=== PATIENT | male | born 1955 | race Caucasian/White ===

== ENCOUNTER → 2018-09-04 10:37 | Outpatient (CLI) | payer MEDICARE, OTHER, SELFPAY ==
--- NOTE | 2018-09-04 | DI.US.S_ITS ---
PROCEDURE: US ABD AORTA ANEURYSM SCREEN INDICATIONS: SCREENING TECHNIQUE: Real time scanning was performed of the aorta and iliac arteries, with image documentation. COMPARISON: None. FINDINGS: Aorta: Proximal aortic diameter measures 2.1 cm. Mid-aorta measures 1.6 cm. Distal aortic diameter is 1.7 cm. Iliac arteries: Right common iliac artery measures 1.3 cm. Left common iliac artery measures 1.2 cm. IMPRESSION: No abdominal aortic or proximal common iliac artery aneurysm. Dictated by: Aneesh Harrison [facility] Interpreted: Fatemeh Venegas MD on 09/04/2018 at 11:23 Approved by: Fatemeh Venegas MD, PhD on 09/04/2018 at 12:26
--- NOTE | 2018-09-04 | DI.RAD.S_ITS ---
PROCEDURE: XR CHEST 2V INDICATIONS: LEFT UPPER CHEST PAIN TECHNIQUE: 2 views of the chest were acquired. COMPARISON: [facility], , CHEST 2 VIEW, 07/22/2014, 12:23. FINDINGS: Surgical changes and devices: None. Lungs and pleura: No pleural effusions or pneumothorax. Lungs are clear. Mediastinum: Mediastinal contours are normal. Heart size is normal. Bones and chest wall: No suspicious bony abnormalities. Soft tissues appear unremarkable. IMPRESSION: No acute cardiopulmonary pathology. Dictated by: Maxi Potter M.D. on 09/04/2018 at 11:12 Approved by: Maxi Potter M.D. on 09/04/2018 at 11:12
== END ==
PROVIDERS: Family Provider Family Medicine; PCP Family Medicine; Visit Provider Family Medicine
DX: Z13.6 Encounter for screening for cardiovascular disorders (principal); R07.9 Chest pain, unspecified
CPT/HCPCS: 71046; 76706

== ENCOUNTER → 2021-01-04 11:49 | Outpatient (CLI) | payer MEDICARE, OTHER, SELFPAY ==
[2021-01-04 12:53] LABS: COVID19 -Nasal RAPID Negative (Negative)
== END ==
PROVIDERS: Visit Provider Physician Assistant
DX: Z01.812 Encounter for preprocedural laboratory examination (principal); Z20.822 Contact with and (suspected) exposure to COVID-19; Z23 Encounter for immunization
CPT/HCPCS: 0011A; 87635; 91301; C9803

== ENCOUNTER → 2021-01-04 12:17 | Outpatient (CLI) | payer MEDICARE, OTHER, SELFPAY ==
[2021-01-04] MEDS: COVID-19 VACC #1, MRNA(MOD) 100 MCG/0.5 ML VIAL IM (12:25)
== END ==
PROVIDERS: Visit Provider Internal Medicine
DX: Z23 Encounter for immunization (principal)
CPT/HCPCS: 0011A; 91301

== ENCOUNTER 2021-01-06 15:00 | Day surgery (SDC) | payer MEDICARE, OTHER, SELFPAY ==
--- NOTE | 2021-01-06 | PATH_ITS ---
[facility] Accession Number: [id number] . 01 Material submitted: . PART A: colon - RANDOM CECUM BIOPSY PART B: colon - RANDOM ASCENDING COLON BIOPSY PART C: colon - RANDOM TRANSVERSE BIOPSY PART D: colon - TRANSVERSE COLON POLYP X2 (4MM EACH) PART E: colon - RANDOM DESCENDING BIOPSY PART F: colon - RANDOM SIGMOID BIOPSY PART G: colon - SIGMOID POLYP X2 (2MM / 6MM) PART H: rectum - RECTUM POLYP 4MM PART I: rectum - RANDOM RECTUM BIOPSY . 01 Clinical history: . DX COLONOSCOPY W/MD ANESTHESIA . 02 Diagnosis: A-C: Cecum, Ascending and Transverse Colon, Biopsies: Lymphocytic colitis. . D. Transverse Colon Polyps, 4 mm, 4 mm, Biopsies: Fragments of tubular adenoma (two polyps removed). . E-F: Descending and Sigmoid Colon, Biopsies: Lymphocytic colitis. . G. Sigmoid Colon Polyps, 2 mm, 6 mm, Biopsies: Fragments of tubular adenoma and fragment of hyperplastic polyp (two polyps removed). . H. Rectal Polyp, 4 mm, Biopsy: Hyperplastic polyp. . I. Rectum, Biopsy: Lymphocytic colitis. [facility] 01/11/2021 1045 Local . 02 Electronically signed: . Stephan Jimenez MD, PhD, Pathologist NPI- [id number] . 01 Gross description: . Part A: RANDOM CECUM BIOPSY: Received in formalin are 2 fragment(s) of haile, soft tissue measuring 0.1 x 0.1 x 0.1 cm to 0.2 x 0.2 x 0.2 cm submitted entirely in 1 cassette(s) Part B: RANDOM ASCENDING COLON BIOPSY: Received in formalin are 3 fragment(s) of haile, soft tissue measuring 0.1 x 0.1 x 0.1 cm to 0.3 x 0.2 x 0.2 cm submitted entirely in 1 cassette(s) Part C: RANDOM TRANSVERSE BIOPSY: Received in formalin are 2 fragment(s) of haile, soft tissue measuring 0.1 x 0.1 x 0.1 cm to 0.4 x 0.4 x 0.2 cm submitted entirely in 1 cassette(s) Part D: TRANSVERSE COLON POLYP X2 (4MM EACH): Received in formalin are 4 fragment(s) of haile, soft tissue measuring 0.1 x 0.1 x 0.1 cm to 0.3 x 0.3 x 0.3 cm submitted entirely in 1 cassette(s) Part E: RANDOM DESCENDING BIOPSY: Received in formalin are 3 fragment(s) of haile, soft tissue measuring 0.1 x 0.1 x 0.1 cm to 0.3 x 0.2 x 0.2 cm submitted entirely in 1 cassette(s) Part F: RANDOM SIGMOID BIOPSY: Received in formalin are 2 fragment(s) of haile, soft tissue measuring 0.1 x 0.1 x 0.1 cm to 0.2 x 0.2 x 0.1 cm submitted entirely in 1 cassette(s) Part G: SIGMOID POLYP X2 (2MM / 6MM): Received in formalin are 3 fragment(s) of haile, soft tissue measuring 0.1 x 0.1 x 0.1 cm to 0.2 x 0.2 x 0.2 cm submitted entirely in 1 cassette(s) Part H: RECTUM POLYP 4MM: Received in formalin is 1 fragment(s) of haile, soft tissue measuring 0.4 x 0.3 x 0.2 cm submitted entirely in 1 cassette(s) Part I: RANDOM RECTUM BIOPSY: Received in formalin are 2 fragment(s) of haile, soft tissue measuring 0.1 x 0.1 x 0.1 cm to 0.3 x 0.2 x 0.2 cm submitted entirely in 1 cassette(s) /HARRISON 01/10/2021 0045 Local . 02 Pathologist provided ICD-10: R19.7, K52.89, D12.3, D12.5, K62.1 . 02 CPT . 759355, [id number], [id number], [id number], [id number], [id number], 867294, [id number], [id number] Performed at: [address] [place] [id number] MD Magdaleno Rowell MD Phone: [phone] Performed at: 02 [facility] [id number] [place] [id number] MD Kimber De Oliveira MD Phone: [phone]
--- NOTE | 2021-01-06 12:10 | P.HP_ITS ---
History of Present Illness History of Present Illness Date Patient Seen: 01/06/21 Chief complaint: DX COLONOSCOPY W/MD ANESTHESIA Narrative: 65 Years Old Male seen today consideration of a diagnostic colonoscopy. He has been having diarrhea x2 months, approximately 4-10 times per day. Stools are watery with very little solid component. Denies hematochezia or melena. No mucus. He does feel bloated but no abdominal cramping. Has been using Pedialyte to treat his diarrhea. Has not been on antibiotics. Heavy alcohol use, 16 ounces of vodka daily. Saw RICH Deal on 10/19/20, labs including CRP, ESR, C. difficile, stool culture, calprotectin, Giardia, FIT test, O&P, H. pylori, CBC, CMP, TSH significant for an elevated CRP at 12.7 and calprotectin at 157. FIT positive. ESR normal. ALT slightly elevated at 52. He has never had a colonoscopy. There's been no family history of colon cancer or colon polyps. Overall health issues have been stable, including no major cardiac events for at least 6 weeks. Past Medical History: Biceps tendon rupture R not repaired 05/2009 Fibula fracture, distal R 05/2007 Shoulder separation, mild to moderate L 07/22/14 Foot ulcer, left HYPERLIPIDEMIA HYPERTENSION NEUROPATHY, NON-DIABETIC TRANSAMINASES, SERUM, ELEVATED ROSACEA SEBORRHEIC KERATOSIS Libido, decreased ALCOHOL DEPENDENCE TOBACCO USE DISORDER Diarrhea Past Surgical History: Knee Arthroscopy for R medial meniscus, 07/14/13 L knee scope Family History: CVA dad Social History: Marital Status: , Sharlene Children: Lyle Occupation: film director Household Members: [employer] Home Medications and Allergies Home Medications Medication Instructions Recorded Confirmed Type atenolol 50 mg PO DAILY 01/06/21 01/06/21 History fenofibrate 160 mg PO DAILY 01/06/21 01/06/21 History hydrochlorothiazide 25 mg PO DAILY 01/06/21 01/06/21 History losartan 100 mg PO DAILY 01/06/21 01/06/21 History Allergies Allergy/AdvReac Type Severity Reaction Status Date / Time No Known Drug Allergies Allergy Verified 01/06/21 15:17 Review of Systems Review of Systems ROS: Yes All systems reviewed with the patient and are negative except as otherwise documented Exam Narrative Exam Narrative: General: well developed, well nourished, in no acute distress, Head: normocephalic and atraumatic, Lungs: normal respiratory effort, clear bilaterally to auscultation, no wheezes rales or rhonchi. Heart: normal rate and regular rhythm, no murmurs, rubs, gallops, or clicks, Abdomen: abdomen soft and non-tender without masses, organomegaly, or abdominal wall hernias, bowel sounds positive. Skin: intact without suspicious lesions or rashes, Psych: alert and cooperative; normal mood and affect; normal attention span and concentration; cognition, remote and recent memory appear to be intact, Assessment & Plan Assessment & Plan narrative: 1. Diarrhea 2. Screening for colon cancer 3. FIT Positive 4. Alcohol dependence Patient has an elevated CRP and fecal calprotectin, concern for inflammation, colonoscopy will be helpful to distinguish inflammatory from noninflammatory causes of his chronic diarrhea. In addition, his FIT test was positive, so he also has an increased risk of colon cancer. Plan: 1. Colonoscopy, diagnostic 2. Patient reports that he is hard to sedate. Will consult MD anesthesia for this high risk patient with excessive alcohol intake and high tolerance. The nature and character of the procedure as well as anticipated results were discussed. The possibility of not completing the procedure was also discussed. Possible complications including aspiration pneumonia, bleeding, perforation and reaction to medications either for sedation or preparation and missed lesions were discussed. Questions were answered and proceeding to the colonoscopy was elected. Informed consent signed. I sincerely appreciate the referral allowing me to participate in this patient's care. Please contact me with any questions or concerns. Quality MIPS - Admit Advanced Care Plan / Current Medications Measures: #47 ? Advanced Care Plan Clinician documentation instruction: document at admission. [] I confirmed that the patient's Advance Care Plan is present, code status is documented, or surrogate decision maker is listed in the patient?s medical record. [SATISFIES [facility] PERFORMANCE] If Yes, Stop Here [] The patient?s Advance Care plan is not present because: (select) [MIPS PERFORMANCE EXCEPTION/EXCLUSION] [] I confirmed today that the patient does not wish or was not able to name a surrogate decision maker or provide an Advance Care Plan. [] Hospice care is currently being provided or has been provided this calendar year [] I did NOT confirm today the presence of an Advance Care Plan or surrogate decision maker documented within the patient's medical record. [DOES NOT SATISFY MIPS PERFORMANCE] #130 - Documentation of Current Medications in the Medical Record Clinician documentation instruction: use macro the first time you see a patient. [] I have utilized all available immediate resources to obtain, update, or review the patient?s current medications. [SATISFIES MIPS PERFORMANCE] If Yes, Stop Here [] The patient is not eligible for medication reconciliation; the patient is in an emergent medical situation where delaying treatment would jeopardize the patient?s health. [MIPS PERFORMANCE EXCEPTION/EXCLUSION] [] I did NOT confirm, update or review the patient's current list of medications today. [DOES NOT SATISFY MIPS PERFORMANCE] MIPS - CL Central Venous Catheter Placement Measure: #76 ? Prevention of Central Venous Catheter (CVC) ? Related Bloodstream Infection Clinician documentation instruction: use macro every time you place a central line. [] All elements of Maximal Sterile Barrier Technique, including hand hygiene, skin prep, and sterile ultrasound technique (if used) were followed. [SATISFIES MIPS PERFORMANCE] If Yes, Stop Here [] If ?No?, the medical reason all elements were NOT used for medical reason [] (ex. emergent condition). [] Maximal Sterile Barrier Technique was not followed, no reason provided [DOES NOT SATISFY MIPS PERFORMANCE] MIPS - DC Heart Failure Measures: #5 - Heart Failure (HF): Angiotensin-Converting Enzyme (IBAN) Inhibitor or Angiotensin Receptor Fang (ARB) Therapy for Left Ventricular Systolic Dysfunction (LVSD) and #8 - Heart Failure (HF): Beta-Fang Therapy for Left Ventricular Systolic Dysfunction (LVSD) Clinician documentation instruction: use macro at every CHF discharge. [] The patient has current or prior documentation of left ventricular ejection fraction (LVEF) less than 40%, or moderate or severely depressed left ventricular systolic function. Answer both: [SATISFIES MIPS PERFORMANCE] [] The patient was prescribed or already taking an Angiotensin-Converting Enzyme (IBAN) Inhibitor, or Angiotensin Receptor Fang (ARB). [] The patient was prescribed or already taking a beta-fang. If Yes to Both, Stop Here [] Patient not prescribed/taking: [MIPS PERFORMANCE EXCEPTION/EXCLUSION] [] IBAN or ARB for medical/patient/system reason(s) including [] (ex. allergy, intolerance, contraindication) [] Beta-fang for medical/patient/system reason(s) including [] (ex. allergy, intolerance, contraindication) [] Patient not prescribed/taking: [DOES NOT SATISFY MIPS PERFORMANCE] [] IBAN or ARB, no reason given [] Beta-fang, no reason given
--- NOTE | 2021-01-06 12:13 | PM.OP.ENDO ---
Operative Date/Time/Diagnoses Date of procedure: 01/06/21 Procedure Notes SCOAP/Timeout: 4:10 p.m. Procedure in detail: ENDOSCOPIST: Lizy Younger MD Anesthesiologist: Dr. Freeman Sedation start time: 4:11 p.m. Sedation end time: 4:46 p.m. PROCEDURE: Colonoscopy with biopsies INDICATIONS: 1. Diarrhea 2. Screening for colon cancer 3. Alcohol dependence MEDICATION: Levsin 0.125 mg sublingual, incremental doses of propofol until appropriate level of sedation achieved. ASA CLASS: 3 CECAL WITHDRAWAL TIME: 26 minutes COMPLICATIONS: None. EXTENT OF PROCEDURE: Cecum. QUALITY OF PREP: Good with portions of liquid stool. PROCEDURE: Prior to insertion of the colonoscope, a digital rectal examination was accomplished with circumferential palpation of the distal rectal mucosa without significant findings being noted. The high-definition colonoscope was passed into the rectum in the usual fashion and advanced over to the cecum without difficulty. The ileocecal valve, appendiceal stoma, and medial wall all could be inspected and no abnormalities were seen. Random biopsies were taken throughout withdrawal. ASCENDING COLON: As the colonoscope was withdrawn, care was taken to expose and inspect the haustral folds and no abnormalities were seen. HEPATIC FLEXURE: Normal, no polyps, diverticula or other abnormalities. TRANSVERSE COLON: Polyps x2, 4 mm, removed with cold biopsy forceps. Otherwise, no diverticula or other abnormalities. DESCENDING COLON: Minor diverticulosis, otherwise, normal, no polyps or other abnormalities. SIGMOID COLON: Polyps x2, 4 and 6 mm, removed with cold biopsy forceps. Also, minor diverticulosis. RECTUM: Normal. J maneuver was produced. There was no significant perianal disease. The J maneuver was broken. The remainder of the rectum was inspected and there was no external hemorrhoid disease. The scope was withdrawn. IMPRESSION: 1. Transverse polyp x2, 4 mm, removed with cold biopsy forceps 2. Sigmoid polyp x2, 4 mm and 6 mm, removed with cold biopsy forceps 3. Left-sided diverticulosis, minor PLAN: 1. Follow-up in clinic status post pathology results. The possibility of a missed lesion including a malignancy has been discussed with the patient previously. Potential alarm symptoms have been discussed and should be reported immediately.
[2021-01-06] MEDS: HYOSCYAMINE 0.125 MG TABLET PO (15:16)
[2021-01-06] MEDS: LACTATED RINGERS 1,000 ML 200 ML IV (15:16)
[2021-01-06 15:26] VITALS: BP 143/91; PULSE 85; RESP 18; TEMP 36.7; O2SAT 97; BMI 30.9
[2021-01-06 15:37] VITALS: BMI 30.9
[2021-01-06 16:53] VITALS: BP 109/79; PULSE 78; RESP 12; TEMP 37.1; O2SAT 93
[2021-01-06 16:58] VITALS: BP 144/90; PULSE 76; RESP 13; O2SAT 96
[2021-01-06 17:02] VITALS: BP 128/85; PULSE 73; RESP 15; O2SAT 96
[2021-01-06 17:10] VITALS: BP 135/93; PULSE 73; RESP 16; TEMP 36.6; O2SAT 95
--- NOTE | 2021-01-06 17:17 | SUR.PHASEI ---
DR CONNELL IN TO SPEAK WITH PT, PT D/C'D, DISCHARGE INSTRUCTIONS REVIEWED WITH VERBALIZED UNDERSTANDING.
== END 2021-01-06 17:17 | disposition home or self-care (01) ==
PROVIDERS: PCP Student in an Organized Health Care Education/Training Program; Referring Provider Student in an Organized Health Care Education/Training Program; Visit Provider Student in an Organized Health Care Education/Training Program
PROC: 0DJD8ZZ Inspection of Lower Intestinal Tract, Via Natural or Artificial Opening Endoscopic (ICD-10-PCS; CPT 45378; principal; 2021-01-06 16:00)
DX: K52.832 Lymphocytic colitis (principal); F10.20 Alcohol dependence, uncomplicated; K57.30 Diverticulosis of large intestine without perforation or abscess without bleeding; D12.3 Benign neoplasm of transverse colon; D12.5 Benign neoplasm of sigmoid colon; K62.1 Rectal polyp
CPT/HCPCS: 45380; J2704; J3010

== ENCOUNTER → 2021-01-11 11:49 | Outpatient (CLI) | payer MEDICARE, OTHER, SELFPAY ==
--- NOTE | 2021-01-11 | DI.RAD.S_ITS ---
PROCEDURE: XR KNEE RT 3V INDICATIONS: RIGHT KNEE PAIN TECHNIQUE: 3 views of the knee were acquired. COMPARISON: [facility], , KNEE 3V RIGHT, 05/21/2013, 15:08. FINDINGS: Bones: No fractures or dislocations. No suspicious bony lesions. Moderate medial and patellofemoral compartment narrowing. No gross erosions for periarticular osteophytes. Soft tissues: Moderate joint effusion. No suspicious soft tissue calcifications. IMPRESSION: Moderate effusion with medial patellofemoral arthritic change. Dictated by: Kimberly Thomas M.D. on 01/11/2021 at 17:37 Approved by: Kimberly Thomas M.D. on 01/11/2021 at 17:38
== END ==
PROVIDERS: PCP Student in an Organized Health Care Education/Training Program; Referring Provider Student in an Organized Health Care Education/Training Program; Visit Provider Student in an Organized Health Care Education/Training Program
DX: M25.561 Pain in right knee (principal); M25.461 Effusion, right knee
CPT/HCPCS: 73562

== ENCOUNTER → 2021-02-01 12:07 | Outpatient (CLI) | payer MEDICARE, OTHER, SELFPAY ==
[2021-02-01] MEDS: COVID-19 VACC #2, MRNA(MOD) 100 MCG/0.5 ML VIAL IM (12:18)
== END ==
PROVIDERS: PCP Student in an Organized Health Care Education/Training Program; Visit Provider Internal Medicine
DX: Z23 Encounter for immunization (principal)
CPT/HCPCS: 0012A; 91301

== ENCOUNTER → 2022-07-05 11:54 | Outpatient (CLI) | payer MEDICARE, OTHER, SELFPAY ==
--- NOTE | 2022-07-05 11:57 | DI.RAD.S_ITS ---
PROCEDURE: XR KNEE LT 3V INDICATIONS: bilateral knee pain TECHNIQUE: 3 views of the knee were acquired. COMPARISON: [facility], KNEE SERIES LT, 10/05/2015, 13:06. FINDINGS: Bones: No fractures or dislocations. No suspicious bony lesions. Mild tricompartmental knee joint degeneration. Soft tissues: No joint effusion. Atherosclerotic calcifications are noted. IMPRESSION: Mild degenerative joint disease. Dictated by: Lance Crawford M.D. on 07/05/2022 at 14:15 Approved by: Lance Crawford M.D. on 07/05/2022 at 14:17
--- NOTE | 2022-07-05 11:57 | DI.RAD.S_ITS ---
PROCEDURE: XR KNEE RT 3V INDICATIONS: bilateral knee pain TECHNIQUE: 3 views of the knee were acquired. COMPARISON: [facility], , XR KNEE RT 3V, 01/11/2021, 12:01. FINDINGS: Bones: No fractures or dislocations. No suspicious bony lesions. Mild tricompartmental knee joint degeneration. Soft tissues: No joint effusion. No suspicious soft tissue calcifications. IMPRESSION: Mild degenerative joint disease. Dictated by: Lance Crawford M.D. on 07/05/2022 at 14:17 Approved by: Lance Crawford M.D. on 07/05/2022 at 14:17
== END ==
PROVIDERS: PCP Family Medicine; Referring Provider Family Medicine; Visit Provider Family Medicine
DX: M25.561 Pain in right knee (principal); M25.562 Pain in left knee; M17.0 Bilateral primary osteoarthritis of knee
CPT/HCPCS: 73562

== ENCOUNTER → 2023-10-30 12:30 | Outpatient (CLI) | payer MEDICARE, OTHER, SELFPAY ==
[2023-10-30 13:39] LABS: Alanine Aminotransferase 30 IU/L (<50); Albumin 3.9 g/dL (3.5-5.0); Albumin Globulin Ratio 1.2 (1.0-2.8); Alkaline Phosphatase 199 U/L (38-126); Aspartate Aminotransferase 79 IU/L (17-59); BUN Creatinine Ratio 19.2 (6-22); Bilirubin Total 2.5 mg/dL (0.2-1.3); Blood Urea Nitrogen 15 mg/dL (9-20); Calcium 9.4 mg/dL (8.4-10.2); Carbon Dioxide 24 mmol/L (22-32); Chloride 101 mmol/L (98-107); Cholesterol 186 mg/dL (140-199); Estimated Glomerular Filt Rate > 60 mL/min (>60); Globulin 3.3 g/dL (1.7-4.1); Glucose 155 mg/dL (80-110); HDL Cholesterol 39 mg/dL (40-60); HEMOLYSIS < 15 (0-50); LDL Cholesterol Calculated 116 mg/dL (<100); Lipase 322 U/L (23-300); Potassium 3.8 mmol/L (3.4-5.1); Sodium 135 mmol/L (137-145); Total Protein 7.2 g/dL (6.3-8.2); Triglycerides 157 mg/dL (35-150); VLDL Cholesterol Calculated 31 mg/dL (2-30)
[2023-10-30 13:56] LABS: Free T4, Direct Thyroxine 1.59 ng/dL (0.78-2.19)
[2023-10-30 14:09] LABS: Prostate Specific Antigen 1.59 ng/mL (0.10-4.00)
[2023-10-30 14:10] LABS: Thyroid Stimulating Hormone 2.78 uIU/mL (0.47-4.68)
[2023-10-30 14:38] LABS: Hematocrit 33.1 % (41-53); Hemoglobin 10.6 g/dL (13.5-17.5); Mean Corpuscular HGB Conc 32.1 % (30-36); Mean Corpuscular Hemoglobin 25.7 PG (26-34); Mean Corpuscular Volume 80.1 fL (80-100); Platelet Count 173 X10^3/uL (150-400); Red Blood Cell Count 4.14 X10^6/uL (4.5-5.9); Red Cell Distribution Width 21.4 % (11.6-14.8); White Blood Cell Count 6.4 X10^3/uL (4.5-11.0)
== END ==
LOC: LAB 12:32
PROVIDERS: PCP Family Medicine; Referring Provider Family Medicine; Visit Provider Family Medicine
DX: Z00.00 Encounter for general adult medical examination without abnormal findings (principal); R10.13 Epigastric pain; R35.1 Nocturia; Z51.81 Encounter for therapeutic drug level monitoring; E78.5 Hyperlipidemia, unspecified; I10 Essential (primary) hypertension; K85.00 Idiopathic acute pancreatitis without necrosis or infection; R74.01 Elevation of levels of liver transaminase levels; R74.02 Elevation of levels of lactic acid dehydrogenase [LDH]; E61.1 Iron deficiency
CPT/HCPCS: 36415; 80053; 80061; 83690; 84153; 84439; 84443; 85027

== ENCOUNTER → 2023-11-18 12:56 | Outpatient (CLI) | payer MEDICARE, OTHER, SELFPAY ==
--- NOTE | 2023-11-18 12:58 | DI.MRI.S_ITS ---
PROCEDURE: MR LUMBAR SPINE WO CON INDICATIONS: Low back pain, unspecified TECHNIQUE: Noncontrast sagittal T1 spin echo and T2 fast echo, sagittal STIR, and T2 fast spin echo through the lumbar spine. In cases with scoliosis, additional coronal T2 fast spin echo may be performed. COMPARISON: [facility], CR, XR LUMBAR SPINE 2 OR 3 VIEWS, 11/12/2023, 11:10. [facility] Outside Film, MR, MR LUMBAR SPINE WITHOUT CONTRAST, 10/04/2021, 11:36 (images only, no report). FINDINGS: Image quality: Excellent. Alignment and Curvature: Mild levoconvex scoliotic curvature is noted. Minimal retrolisthesis can be seen at the L2-L3 level. Minimal anterolisthesis can be seen at L4-L5. Minimal retrolisthesis can be seen at L5-S1. Bone Marrow: Marrow is of normal overall signal. No acute vertebral body compression fractures. Spinal Cord: Conus medullaris terminates at the L1 level. Visualized cord demonstrates normal signal and size. Paraspinous Soft Tissues: No paravertebral masses. T12-L1: The disc height and disk signal are relatively well-preserved. Mild generalized disc bulge is seen. Mild facet joint hypertrophy is seen. There is biab-ej-rlsmgjqo right-sided and no left-sided neural foraminal narrowing. Mild central canal narrowing is seen. L1-L2: The disc height is well-preserved. Loss of disc signal is seen at this level. Moderate disc bulge is seen, which is eccentric to the right. Mild facet joint hypertrophy is seen. There is ioek-uy-gvelujlz bilateral neural foraminal narrowing. Moderate central canal narrowing is seen. The degree of central canal narrowing is slightly worse than on the prior examination. L2-L3: Moderate loss of disc height is seen. Loss of disc signal is seen. Reactive marrow endplate changes are seen which are hypointense on T1-weighted imaging and hyperintense on T2 weighted imaging, which is most consistent with edema (Modic type I changes). Moderate generalized disc bulge is seen. There is a superimposed central disc protrusion. Moderate facet joint hypertrophy is seen. There is moderate left-sided and moderate to severe right-sided neural foraminal narrowing. There is a degree of compression seen upon exiting right L2 nerve root. There is severe central canal narrowing, as on series 5 image 19. These degenerative changes are worse than in 2020. L3-L4: Mild loss of disc height is seen. Loss of disc signal is seen. Moderate generalized disc bulge is seen. There is a superimposed central disc protrusion. Moderate facet joint hypertrophy is seen. There is at least moderate bilateral neural foraminal narrowing. At least moderate central canal narrowing is seen, as on series 5, image 26. When comparison is made with the prior images, these findings are similar. L4-L5: The disc height is well-preserved. Loss of disc signal is seen at this level. Moderate generalized disc bulge is seen. There is a superimposed central disc protrusion. Moderate facet joint hypertrophy is seen. There is at least moderate right-sided and moderate to severe left-sided neural foraminal narrowing. There is a degree of compression seen upon the exiting nerve roots. At least moderate central canal narrowing is seen, as on series 7, image 12. When comparison is made with the prior images, these findings are similar. L5-S1: At least moderate loss of disc height and disc signal can be seen. Reactive marrow endplate changes are seen, which are hyperintense on T1-weighted and T2-weighted imaging and most consistent with fatty metaplasia (Modic type II changes). At least moderate disc bulge is seen. There is a superimposed central disc protrusion. Moderate facet joint hypertrophy is seen. Moderate bilateral neural foraminal narrowing is seen. Minimal central canal narrowing is seen. No significant change from the prior. IMPRESSION: Multiple levels of lumbar spine degenerative change can be seen, which are progressed at a few levels compared to the outside 2020 study, particularly at the L2-L3 level. Dictated by: Leobardo Mcelroy M.D. on 11/18/2023 at 15:56 Approved by: Leobardo Mcelroy M.D. on 11/18/2023 at 16:03
== END ==
LOC: MRI 12:57
PROVIDERS: PCP Family Medicine; Referring Provider Orthopaedic Surgery Orthopaedic Surgery of the Spine; Visit Provider Orthopaedic Surgery Orthopaedic Surgery of the Spine
DX: M47.816 Spondylosis without myelopathy or radiculopathy, lumbar region (principal); M47.817 Spondylosis without myelopathy or radiculopathy, lumbosacral region; M54.50 Low back pain, unspecified
CPT/HCPCS: 72148

== ENCOUNTER → 2023-11-19 14:01 | Outpatient (CLI) | payer MEDICARE, OTHER, SELFPAY ==
[2023-11-19 15:08] LABS: Add Manual Diff / Slide Review NO; Basophils Absolute Auto 100 /uL (0-100); Basophils Percent Auto 1.6 % (0-2); Eosinophils Absolute Auto 100 /uL (0-450); Eosinophils Percent Auto 1.3 % (2-4); Hematocrit 34.8 % (41-53); Lymphocytes Absolute Auto 1600 /uL (1100-4500); Lymphocytes Percent Auto 24.7 % (25-40); Mean Corpuscular HGB Conc 31.7 % (30-36); Mean Corpuscular Hemoglobin 25.2 PG (26-34); Mean Corpuscular Volume 79.3 fL (80-100); Monocytes Absolute Auto 700 /uL (0-900); Monocytes Percent Auto 10.6 % (3-14); Neutrophils Absolute Auto 3900 /uL (1500-7000); Neutrophils Percent Auto 61.8 % (50-75); Platelet Count 160 X10^3/uL (150-400); Red Blood Cell Count 4.39 X10^6/uL (4.5-5.9); Red Cell Distribution Width 21.4 % (11.6-14.8); White Blood Cell Count 6.3 X10^3/uL (4.5-11.0)
[2023-11-19 15:17] LABS: Anisocytosis 1+
[2023-11-19 15:27] LABS: HEMOLYSIS < 15 (0-50); Iron 47 ug/dL (49-181)
[2023-11-19 15:29] LABS: Alanine Aminotransferase 26 IU/L (<50); Albumin 3.9 g/dL (3.5-5.0); Albumin Globulin Ratio 1.3 (1.0-2.8); Alkaline Phosphatase 207 U/L (38-126); Aspartate Aminotransferase 76 IU/L (17-59); Bilirubin Total 1.2 mg/dL (0.2-1.3); Bilirubin Unconjugated 0.5 mg/dL (0.0-1.1); Globulin 3.1 g/dL (1.7-4.1); HEMOLYSIS < 15 (0-50); INR 1.2 (0.9-1.3); Lipase 221 U/L (23-300); Prothrombin Time 13.7 SECONDS (9.4-12.5)
[2023-11-19 15:41] LABS: Percent Iron Saturation 11 % (20-50); Total Iron Binding Capacity 434 ug/dL (261-462); Transferrin 357 mg/dL (206-381)
[2023-11-19 16:03] LABS: Ferritin 49 ng/mL (18-464)
== END ==
PROVIDERS: PCP Family Medicine; Referring Provider Nurse Practitioner Family; Visit Provider Nurse Practitioner Family
DX: R10.13 Epigastric pain (principal); D50.9 Iron deficiency anemia, unspecified
CPT/HCPCS: 36415; 80076; 82728; 83540; 83550; 83690; 85025; 85610

== ENCOUNTER → 2023-11-21 11:18 | Outpatient (CLI) | payer MEDICARE, OTHER, SELFPAY ==
[2023-11-26 12:48] LABS: H. Pylori Antigen Stool Negative (Negative)
== END ==
PROVIDERS: PCP Family Medicine; Referring Provider Nurse Practitioner Family; Visit Provider Nurse Practitioner Family
DX: R10.13 Epigastric pain (principal); D50.9 Iron deficiency anemia, unspecified
CPT/HCPCS: 87338

== ENCOUNTER → 2023-11-28 10:54 | Outpatient (CLI) | payer MEDICARE, OTHER, SELFPAY ==
--- NOTE | 2023-11-28 | DI.CT.S_ITS ---
PROCEDURE: CT ABDOMEN PELVIS W CON INDICATIONS: EPIGASTRIC PAIN TECHNIQUE: After the administration of intravenous contrast, axial sections acquired from the lung bases to the pubic symphysis. Coronal and sagittal reformats were performed. For radiation dose reduction, the following was used: automated exposure control, adjustment of mA and/or kV according to patient size. COMPARISON: None. FINDINGS: Image quality: Diagnostic. Lower Chest: Moderate coronary artery calcifications. ABDOMEN: Liver: No solid mass on this single phase study. Nodular contour to the liver, raising concern for cirrhosis. Small right hepatic lobe calcification. Gallbladder: No radiopaque gallstones or wall thickening. Biliary ducts: No biliary dilation. Pancreas: No ductal dilation. Spleen: Enlarged measuring up to 16 centimeters. Adrenal Glands: No adrenal nodules. Kidneys and Ureters: No hydronephrosis. No solid mass. No complex renal cystic lesion which requires follow up. Tiny nonobstructing calcification in the left kidney. Stomach and Bowel: Normal colonic caliber, without significant wall thickening. Diverticulosis without evidence of acute diverticulitis. Normal appendix. Peritoneum: Trace volume ascites. No free air. Ventral Wall: No significant ventral hernia. Abdominal Nodes: No retroperitoneal or mesenteric adenopathy by size criteria. Vessels: Aorta and inferior vena cava are normal in size. Atherosclerotic vascular calcifications. Venous varices are noted within the upper abdomen. PELVIS: Pelvic Organs: Prostatomegaly.. Bladder: No bladder wall thickening, accounting for underdistention. Pelvic Nodes: No enlarged lymph nodes. Miscellaneous: Small bilateral fat containing inguinal hernias are seen. Bones: No aggressive osseous abnormality. Degenerative changes of the spine. IMPRESSION: 1. Nodular contour to the liver, concerning for cirrhosis. Splenomegaly, trace ascites and venous varices in the upper abdomen, likely representing portal hypertension. 2. Diverticulosis without evidence of acute diverticulitis. 3. Prostatomegaly. Dictated by: Chris Yoder M.D. on 11/28/2023 at 15:40 Approved by: Chris Yoder M.D. on 11/28/2023 at 15:51
== END ==
LOC: CT 10:55
PROVIDERS: PCP Family Medicine; Referring Provider Nurse Practitioner Family; Visit Provider Nurse Practitioner Family
DX: D50.9 Iron deficiency anemia, unspecified (principal); R10.13 Epigastric pain; I25.10 Atherosclerotic heart disease of native coronary artery without angina pectoris; R16.1 Splenomegaly, not elsewhere classified; N40.0 Benign prostatic hyperplasia without lower urinary tract symptoms; K57.90 Diverticulosis of intestine, part unspecified, without perforation or abscess without bleeding; K40.20 Bilateral inguinal hernia, without obstruction or gangrene, not specified as recurrent
CPT/HCPCS: 74177; Q9967

== ENCOUNTER 2024-02-05 07:00 | Day surgery (SDC) | payer MEDICARE, OTHER, SELFPAY ==
[2024-01-22 08:30] VITALS: BMI 32.3
[2024-01-22 14:32] VITALS: BMI 32.3
--- NOTE | 2024-02-05 | DI.RAD.S_ITS ---
PROCEDURE: XR LUMBAR SPINE 2-3V INDICATIONS: L2-3 LAMINECTOMY TECHNIQUE: Intraoperative low resolution fluoroscopic spot films COMPARISON: None. FINDINGS: Surgical instrumentation noted posterior to the L2-3 disc space. IMPRESSION: 1. Fluoroscopic guidance Approved by: Luis A Myers M.D. on 02/05/2024 at 19:23
[2024-02-05 08:00] VITALS: BP 169/95; PULSE 81; RESP 17; TEMP 37.2; O2SAT 100
[2024-02-05 08:13] VITALS: BMI 32.3
--- NOTE | 2024-02-05 08:50 | P.HP_ITS ---
History of Present Illness History of Present Illness Date Patient Seen: 02/05/24 Time Patient Seen: 08:50 Date of Onset of Symptoms: 08/27/23 Chief complaint: left hip and leg pain Narrative: Mr. Guerrero is a 68 yo M with chronic back pain with recent worsening of his left hip and leg pain. He had conservative care for over 6 weeks with no improvement. His MRI showed L2-3 spinal stenosis with left sided lateral recess narrowing. Patient was scheduled for surgical treatment. [facility] Medical History (Updated 01/22/24 @ 14:45 by Kayli Gunderson RN) Polyneuropathy Elevation of level of transaminase and lactic acid dehydrogenase (LDH) Diverticulosis Foot ulcer, left Noninfectious gastroenteritis Knee pain, right Lymphocytic colitis HTN (hypertension) HLD (hyperlipidemia) Rosacea Situational anxiety History of chest pain Iron deficiency anemia Alcoholic cirrhosis History of heavy alcohol consumption Surgical History (Updated 01/22/24 @ 14:35 by Kayli Gunderson RN) Hx of colonoscopy (2020) Social History household members: spouse Smoking Status: Current every day smoker alcohol intake: current Meds Home Medications and Allergies Home Medications Medication Instructions Recorded Confirmed Type hydrochlorothiazide 25 mg tablet 25 mg PO DAILY 01/06/21 02/05/24 History losartan 100 mg tablet 100 mg PO DAILY 01/06/21 02/05/24 History acetaminophen 500 mg tablet 1,000 mg PO Q6H PRN Pain (Scale 02/05/24 02/05/24 History (Tylenol Extra Strength) Score 4-6) ferrous sulfate 325 mg (65 mg 325 mg PO QAM 02/05/24 02/05/24 History iron) tablet (FeroSul) ibuprofen 600 mg tablet 600 mg PO Q6H PRN Pain (Scale 02/05/24 02/05/24 History Score 4-6) omeprazole 40 mg capsule,delayed 40 mg PO QAM 02/05/24 02/05/24 History release Allergies Allergy/AdvReac Type Severity Reaction Status Date / Time No Known Drug Allergies Allergy Verified 02/05/24 08:09 Exam Back/Spine/Pelvis Other: mild pain with ROM, no point tenderness. No skin lesions, no step off. Neuro Other: + straight leg raise to LLE, sensibility decreased to left L2, L3 dermatome, motor strength 4/5 in left hip flexion. DTR 1+ bilateral LE. Assessment & Plan Assessment & Plan narrative: Mr. Guerrero is here for f/u of his lumbar spine. His MRI ordered by me was independently reviewed by me with him and his today. Patient has symptoms of neurogenic claudication with difficulty walking. Patient has been medically optimized to proceed with surgery. I discussed both laminectomy and fusion surgery with patient specifically at L2- 3 level due to its severe spinal stenosis and instability demonstrated by the retrolisthesis. Laminectomy alone was also discussed. Risks for surgery include but not limited to bleeding, infection, nerve/dura injury, need for additional procedure, persisting pain. Patient is scheduled for L2-3 hemilaminectomy.
[2024-02-05] MEDS: CEFAZOLIN 2 GM/100 ML PREMIX 100 ML IV (09:05)
--- NOTE | 2024-02-05 09:40 | SUR.OPER ---
Prone on spine table, head in foam head support, padded chest and pelvic supports, gel pad at knees, lower legs supported by pillows; nipples, genitalia and toes free of pressure, arms secured on foam padded arm boards at <90 degrees abduction. Tape over blanket at thigh secured to table.
[2024-02-05] MEDS: LACTATED RINGERS 1,000 ML 42 ML IV (09:45)
[2024-02-05] MEDS: BUPIVACAINE 0.25% (PF) 30 ML, EPINEPHrine 0.15 MG INJ (09:48)
--- NOTE | 2024-02-05 10:06 | PM.OP.1 ---
Operative Date/Time/Diagnoses Date of procedure: 02/05/24 Time of procedure: 08:40 Pre-op diagnosis: 1. L2-3 spinal stenosis 2. Epidural lipomatosis Post-op diagnosis: same Procedure & Clinicians Procedure: 1. L2-3 laminectomy with bilateral partial facetectomies 2. Utilization of microsurgical technique and operatinig microscope Same procedure as scheduled: Yes Indications: Patient has been having chronic back pain and worsening lumbar radiculopathy and symptoms of neurogenic claudication. Patient was found to moderate to severe central stenosis with epidural lipomatosis correlating with his symptoms. Patient failed multiple conservative management with worsening pain weakness and numbness in his lower extremity. Patient has been having difficulty performing activity of daily living. After discussing risks benefits of treatment options, patient elected proceed with surgery. Surgeon: Ramandeep Contreras Spiritual Care Coordinator: Shirin Thomas Click Yes if Unassisted: No Anesthesia Type: General Operative Notes Closure Type: primary Estimated Blood Loss (mL): 5 Blood products transfused: none Procedure in detail: Patient was seen in the preoperative area. Risks and benefits of the surgery was discussed with the patient. Informed consent was obtained from the patient and placed in the chart. Surgical site was marked. Patient was taken to the operative room. General anesthesia was administered. Prophylactic antibiotic was given to the patient less than 30 min before the incision was made. Patient was placed into a prone position on the Johnny table. Patient's back was then prepped and draped in the sterile fashion. Time-out was performed at this time. Using AP and lateral C-arm imaging the interval between L2-3 was identified and marked on patient's back. A 1 inch incision 1 in from midline was made on the left side. The fascia was incised in line with skin incision. Globus MARS retractors was placed inside the incision and docked onto the L2 lamina. Using microsurgical technique and operating microscope, a L2 laminectomy was performed using a Kerrison rongeur. Liagamentum flavum was resected at the site of the laminotomy. Either side of the dura was exposed. Bilateral partial facetcomies was performed to further decompress the lateral recess. Patient was found to have significant amount of epidural lipomatosis which was contributing to additional stenosis. The lipomatosis was resected using Kerrison rongeur and pituitary from the epidural space to further decompress the epidural space. After the laminectomy was completed, the area medial lateral superior and inferior to the area of the laminectomy was inspected and explored using a micro curette. No other impinging structure was identified. The wound was then irrigated with sterile normal saline. 40 mg Depo-Medrol was placed into the epidural space. The deep fascia was closed with 1-0 Vicryl. The subcutaneous tissue was closed with 2-0 Vicryl. The skin was closed with skin augusto. Patient tolerated the procedure well. There were no complications. Patient was transferred recovery room in stable condition. Complications: none Post-operative Condition: stable Disposition: PACU Plan for aftercare: Discharge to home
[2024-02-05 10:10] VITALS: BP 115/82; PULSE 81; RESP 12; TEMP 36.4; O2SAT 96
[2024-02-05 10:20] VITALS: BP 121/84; PULSE 82; RESP 12; O2SAT 97
[2024-02-05 10:37] VITALS: BP 141/85; PULSE 79; RESP 12; O2SAT 97
[2024-02-05] MEDS: OXYCODONE IR 5 MG TABLET PO (11:11)
[2024-02-05 11:27] VITALS: BP 149/83; PULSE 66; TEMP 36.8; O2SAT 99
== END 2024-02-05 11:35 | disposition home or self-care (01) ==
PROVIDERS: PCP Family Medicine; Referring Provider Orthopaedic Surgery Orthopaedic Surgery of the Spine; Visit Provider Orthopaedic Surgery Orthopaedic Surgery of the Spine
PROC: (CPT 63047; principal; 2024-02-05 08:45)
DX: M48.062 Spinal stenosis, lumbar region with neurogenic claudication (principal); E88.2 Lipomatosis, not elsewhere classified
CPT/HCPCS: 63047; 72100; 76000; J0171; J0330; J0690; J1100; J2250; J2405; J2704; J2920; J3010

== ENCOUNTER → 2024-07-08 11:30 | Outpatient (ROUT) | payer MEDICARE, OTHER, SELFPAY ==
[2024-07-08 11:50] LABS: INR 1.2 (0.9-1.3); Prothrombin Time 13.6 SECONDS (9.4-12.5)
== END ==
PROVIDERS: PCP Family Medicine; Visit Provider Family Medicine
DX: K70.30 Alcoholic cirrhosis of liver without ascites (principal)
CPT/HCPCS: 85610

== ENCOUNTER → 2024-07-16 07:07 | Outpatient (CLI) | payer MEDICARE, OTHER, SELFPAY ==
--- NOTE | 2024-07-16 | DI.US.S_ITS ---
PROCEDURE: US ABDOMEN LIMITED INDICATIONS: ALCOHOLIC CIRRHOSIS OF LIVER W/O ASCITES TECHNIQUE: Real-time focused scanning was performed of the abdomen, with image documentation. COMPARISON: [facility], CT, CT ABDOMEN PELVIS W CON, 11/28/2023, 12:02. FINDINGS: The liver demonstrates mildly enlarged size. The liver demonstrates generalized moderately increased echogenicity. The liver demonstrates a coarse echotexture, with scalloped margins. This decreases ultrasound sensitivity for detection of hepatic masses. The main portal vein demonstrates normal size and demonstrates normal appearing, hepatopetal flow. No findings of gallstones or sludge are seen. The gallbladder wall is not thickened, measuring 3 mm or less. No specific pericholecystic fluid is seen. The sonographic Pickard sign is negative. There is no biliary dilatation, the common bile duct measures 5 mm. No significant pancreatic abnormality is seen on these images. Are a small amount of ascites is seen. The right kidney demonstrates a lobular contour and demonstrates normal length and normal cortical thickness. IMPRESSION: Cirrhotic appearing liver, without an acute abnormality seen. Dictated by: Leobardo Mcelroy M.D. on 07/16/2024 at 10:32 Approved by: Leobardo Mcelroy M.D. on 07/16/2024 at 10:34
== END ==
PROVIDERS: PCP Family Medicine; Referring Provider Family Medicine; Visit Provider Family Medicine
DX: K70.30 Alcoholic cirrhosis of liver without ascites (principal)
CPT/HCPCS: 76705

== ENCOUNTER 2025-02-17 17:00 | Emergency (ER) | payer OTHER, SELFPAY ==
[2025-02-17] VITALS (59 sets, daily range): BP systolic 68–150; BP diastolic 38–120; PULSE 87–119; RESP 9–33; TEMP 36.7–37.5; O2SAT 92–99; BMI 33.0
--- NOTE | 2025-02-17 17:13 | EKG_ITS ---
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
[2025-02-17 17:31] LABS: INR 1.6 (0.9-1.3); Prothrombin Time 17.6 SECONDS (9.4-12.5)
[2025-02-17 17:33] LABS: PTT Partial Thromboplastin Tim 34 SECONDS (25.1-36.5)
--- NOTE | 2025-02-17 17:34 | ED.GIBLEED ---
HPI - GI Bleed <Miko Andrew MD - Last Filed: 02/23/25 08:49> General Chief complaint: GI Bleed Stated complaint: GI Bleed Time Seen by Provider: 02/17/25 17:20 History of Present Illness HPI Narrative: Patient brought in by ambulance from home. at bedside. Patient has had dark emesis and dark black stools since yesterday. Has felt lightheaded and dizzy. Blood pressure noted. Heart rate noted. Patient has known alcohol related liver disease. Patient sees liver specialist in [place]. However has not seen the specialist since June of last year. Was supposed to get a CT scan since then but has not. Did not go to the appointment this past December. Patient did have EGD and colonoscopy 1 year ago at [facility] and describes him having esophageal varices. He has never had bleeding before. Blood pressure noted on arrival. As well as heart rate. Related Data Home Medications Medication Instructions Recorded Confirmed hydrochlorothiazide 25 mg tablet 25 mg PO DAILY 01/06/21 02/05/24 losartan 100 mg tablet 100 mg PO DAILY 01/06/21 02/05/24 acetaminophen 500 mg tablet 1,000 mg PO Q6H PRN Pain (Scale 02/05/24 02/05/24 (Tylenol Extra Strength) Score 4-6) ferrous sulfate 325 mg (65 mg 325 mg PO QAM 02/05/24 02/05/24 iron) tablet (FeroSul) ibuprofen 600 mg tablet 600 mg PO Q6H PRN Pain (Scale 02/05/24 02/05/24 Score 4-6) omeprazole 40 mg capsule,delayed 40 mg PO QAM 02/05/24 02/05/24 release Previous Rx's Medication Instructions Recorded oxycodone 5 mg tablet 5 mg PO Q4-6H PRN Mild or moderate 02/05/24 pain #30 tabs Allergies Allergy/AdvReac Type Severity Reaction Status Date / Time No Known Drug Allergies Allergy Verified 02/05/24 08:09 Review of Systems <Miko Andrew MD - Last Filed: 02/23/25 08:49> Review of Systems Narrative: GENERAL: Negative chills, positive fatigue, malaise, positive fever, sweats. HEENT: Negative sinus pain, ear pain, sore throat RESPIRATORY: Negative dyspnea, cough CARDIOVASCULAR: Negative chest pain, palpitations GASTROINTESTINAL: Positive vomiting, nausea, negative abdominal pain, positive hemoptysis positive bloody stool/black stool : Negative dysuria, frequency, hematuria MUSCULOSKELETAL: Negative muscle or bony pain SKIN: Negative rash, skin lesions NEUROLOGIC: Negative weakness, numbness, positive dizziness ROS Unobtainable: All systems reviewed & are unremarkable except as noted in HPI and below Patient History <Miko Andrew MD - Last Filed: 02/23/25 08:49> Medical History (Updated 02/17/25 @ 20:42 by John Pimentel MD) Polyneuropathy Elevation of level of transaminase and lactic acid dehydrogenase (LDH) Diverticulosis Foot ulcer, left Noninfectious gastroenteritis Knee pain, right Lymphocytic colitis HTN (hypertension) HLD (hyperlipidemia) Rosacea Situational anxiety History of chest pain Iron deficiency anemia Alcoholic cirrhosis History of heavy alcohol consumption Surgical History (Updated 01/22/24 @ 14:35 by Kayli Gunderson RN) Hx of colonoscopy (2020) Social History household members: spouse alcohol intake: current alcohol intake frequency: 3 or more drinks per day Exam <Miko Andrew MD - Last Filed: 02/23/25 08:49> Narrative Exam Narrative: GENERAL: in no distress, not toxic not dyspneic HEAD: Normocephalic. EYES: Pupils equal round, positive icterus ENT: Mucous membranes moist. NECK: Trachea midline. CARDIOVASCULAR: Regular rate and rhythm RESPIRATORY: Clear to auscultation. Breath sounds equal bilaterally. No wheezes, rales, or rhonchi. GASTROINTESTINAL: Abdomen soft, non-tender no peritoneal signs bowel sounds are present. No guarding or rebound. EXTREMITIES: No gross deformities. BACK: No flank tenderness. NEURO: AOx4. Clear speech SKIN: Warm and dry PSYCH: Not anxious, is cooperative Initial Vital Signs Initial Vital Signs: Vital Signs Temperature 98.1 F 02/17/25 17:17 Pulse Rate 116 H 02/17/25 17:17 Respiratory Rate 20 02/17/25 17:17 Blood Pressure 101/72 02/17/25 17:17 Pulse Oximetry 98 02/17/25 17:17 Oxygen Delivery Method Room Air 02/17/25 17:17 <John Pimentel MD - Last Filed: 02/18/25 02:48> Initial Vital Signs Initial Vital Signs: Vital Signs Temperature 98.1 F 02/17/25 17:17 Pulse Rate 116 H 02/17/25 17:17 Respiratory Rate 20 02/17/25 17:17 Blood Pressure 101/72 02/17/25 17:17 Pulse Oximetry 98 02/17/25 17:17 Oxygen Delivery Method Room Air 02/17/25 17:17 Course <Miko Andrew MD - Last Filed: 02/23/25 08:49> Orders Ordered: Discontinued Medications Diphenhydramine HCl (Diphenhydramine 50 Mg/Ml Vial) 25 mg IV NOW ONE Stop: 02/17/25 21:02 Last Admin: 02/17/25 21:10 Dose: 25 mg Documented By: MIRYAM Folic Acid (Folic Acid 1 Mg Tablet) 1 mg PO DAILY GOOD Ceftriaxone Sodium 2,000 mg/ (Sodium Chloride) 100 mls @ 200 mls/hr IV NOW ONE Stop: 02/17/25 20:22 Last Infusion: 02/17/25 21:36 Dose: Infused Documented By: Infusion: 02/17/25 21:27 Dose: 200 mls/hr Documented By: Infusion: 02/17/25 21:16 Dose: 0 mls/hr Documented By: Admin: 02/17/25 21:12 Dose: 200 mls/hr Documented By: MIRYAM Octreotide Acetate 500 mcg/ (Sodium Chloride) 101 mls @ 10.1 mls/hr IV CONT GOOD; Protocol Last Infusion: 02/17/25 22:25 Dose: 50 mcg/hr, 10.1 mls/hr Documented By: Admin: 02/17/25 21:34 Dose: 50 mcg/hr, 10.1 mls/hr Documented By: THUAN Lorazepam (Lorazepam 2 Mg/Ml Inj) 0 mg IV CIWAPRN PRN; Protocol PRN Reason: Alcohol Withdrawal Lorazepam (Lorazepam 2 Mg/Ml Inj) 1 mg IV NOW ONE Stop: 02/17/25 19:32 Last Admin: 02/17/25 19:37 Dose: 1 mg Documented By: MIRYAM Metoclopramide HCl (Metoclopramide 10 Mg/2 Ml Inj) 10 mg IV NOW ONE Stop: 02/17/25 21:03 Last Admin: 02/17/25 21:11 Dose: 10 mg Documented By: MIRYAM Multivitamins (Multivitamin 1 Tablet) 1 tab PO DAILY GOOD Octreotide Acetate (Octreotide 100 Mcg/Ml Vial) 50 mcg IV NOW ONE Stop: 02/17/25 20:23 Last Admin: 02/17/25 20:53 Dose: 50 mcg Documented By: MIRYAM Ondansetron HCl (Ondansetron 4 Mg/2 Ml Inj) 4 mg IV NOW PRN PRN Reason: Nausea And Vomiting Ondansetron HCl (Ondansetron 4 Mg Odt) 4 mg SL NOW PRN PRN Reason: Nausea And Vomiting Ondansetron HCl (Ondansetron 4 Mg/2 Ml Inj) 4 mg IV Q6HR PRN PRN Reason: Nausea And Vomiting Pantoprazole Sodium (Pantoprazole 40 Mg Vial) 80 mg IV NOW ONE Stop: 02/17/25 17:22 Last Admin: 02/17/25 17:57 Dose: 80 mg Documented By: MIRYAM Prochlorperazine (Prochlorperazine 10 Mg/2 Ml Vial) 10 mg IV NOW ONE Stop: 02/17/25 18:24 Last Admin: 02/17/25 18:29 Dose: 10 mg Documented By: MIRYAM Thiamine HCl (Thiamine 100 Mg Tablet) 100 mg PO DAILY GOOD Stop: 02/21/25 09:01 Vital Signs Vital signs: Vital Signs - 8 hr 02/17/25 18:45 02/17/25 18:45 02/17/25 18:50 Temperature Pulse Rate 107 H 112 H Respiratory Rate 21 24 Blood Pressure 108/64 Pulse Oximetry 96 02/17/25 18:55 02/17/25 19:00 02/17/25 19:00 Temperature Pulse Rate 109 H 105 H Respiratory Rate 27 H 20 Blood Pressure 98/56 L Pulse Oximetry 95 02/17/25 19:05 02/17/25 19:10 02/17/25 19:15 Temperature Pulse Rate 106 H 107 H Respiratory Rate 19 25 H Blood Pressure 100/60 Pulse Oximetry 96 94 02/17/25 19:15 02/17/25 19:20 02/17/25 19:25 Temperature Pulse Rate 104 H 106 H 103 H Respiratory Rate 22 33 H 20 Blood Pressure Pulse Oximetry 94 96 96 02/17/25 19:30 02/17/25 19:30 02/17/25 19:35 Temperature Pulse Rate 106 H 103 H Respiratory Rate 21 17 Blood Pressure 82/53 L Pulse Oximetry 97 02/17/25 19:35 02/17/25 19:46 02/17/25 19:48 Temperature Pulse Rate Respiratory Rate Blood Pressure 96/54 L 74/39 L 94/52 L Pulse Oximetry 02/17/25 19:48 02/17/25 19:50 02/17/25 19:50 Temperature Pulse Rate 104 H 101 H Respiratory Rate 21 20 Blood Pressure 98/54 L Pulse Oximetry 96 94 02/17/25 19:55 02/17/25 19:55 02/17/25 20:00 Temperature Pulse Rate 104 H 104 H Respiratory Rate 20 20 Blood Pressure 95/51 L Pulse Oximetry 94 95 02/17/25 20:00 02/17/25 20:05 02/17/25 20:05 Temperature Pulse Rate 99 H Respiratory Rate 17 Blood Pressure 88/54 L 91/55 L Pulse Oximetry 94 02/17/25 20:10 02/17/25 20:10 02/17/25 20:15 Temperature Pulse Rate 100 H 95 H Respiratory Rate 22 19 Blood Pressure 95/57 L Pulse Oximetry 95 93 02/17/25 20:15 02/17/25 20:20 02/17/25 20:20 Temperature Pulse Rate 94 H Respiratory Rate 19 Blood Pressure 96/57 L 95/54 L Pulse Oximetry 93 02/17/25 20:25 02/17/25 20:25 02/17/25 20:30 Temperature Pulse Rate 94 H 106 H Respiratory Rate 21 Blood Pressure 93/50 L Pulse Oximetry 92 97 02/17/25 20:31 02/17/25 20:31 02/17/25 20:35 Temperature Pulse Rate 112 H 108 H Respiratory Rate 21 Blood Pressure 121/58 L Pulse Oximetry 96 97 02/17/25 20:36 02/17/25 20:36 02/17/25 20:40 Temperature Pulse Rate 106 H 104 H Respiratory Rate 21 23 Blood Pressure 150/120 H Pulse Oximetry 98 96 02/17/25 20:44 02/17/25 20:44 02/17/25 20:45 Temperature 99.2 F Pulse Rate 103 H 103 H Respiratory Rate 21 19 Blood Pressure 95/52 L 94/51 L Pulse Oximetry 97 02/17/25 20:45 02/17/25 20:45 02/17/25 20:50 Temperature Pulse Rate 102 H Respiratory Rate 20 Blood Pressure 94/51 L 100/58 L Pulse Oximetry 98 02/17/25 20:50 02/17/25 20:55 02/17/25 20:55 Temperature Pulse Rate 103 H 101 H Respiratory Rate 19 19 Blood Pressure 88/49 L Pulse Oximetry 96 96 02/17/25 21:00 02/17/25 21:03 02/17/25 21:05 Temperature 98.4 F Pulse Rate 87 115 H 111 H Respiratory Rate 21 21 Blood Pressure 115/63 Pulse Oximetry 92 97 02/17/25 21:05 02/17/25 21:10 02/17/25 21:10 Temperature Pulse Rate 114 H Respiratory Rate 20 Blood Pressure 115/63 87/63 L Pulse Oximetry 93 02/17/25 21:15 02/17/25 21:15 02/17/25 21:20 Temperature Pulse Rate 112 H 113 H Respiratory Rate 18 19 Blood Pressure 111/57 L Pulse Oximetry 95 94 02/17/25 21:20 02/17/25 21:25 02/17/25 21:25 Temperature Pulse Rate 105 H Respiratory Rate 18 Blood Pressure 80/50 L 75/45 L Pulse Oximetry 94 02/17/25 21:30 02/17/25 21:30 02/17/25 21:35 Temperature Pulse Rate 100 H 104 H Respiratory Rate 11 L 11 L Blood Pressure 73/43 L Pulse Oximetry 94 94 02/17/25 21:35 02/17/25 21:40 02/17/25 21:40 Temperature Pulse Rate 100 H Respiratory Rate 9 L Blood Pressure 75/43 L 73/44 L Pulse Oximetry 94 02/17/25 21:45 02/17/25 21:45 02/17/25 21:50 Temperature Pulse Rate 104 H Respiratory Rate 29 H Blood Pressure 79/49 L 68/38 L Pulse Oximetry 94 02/17/25 21:50 02/17/25 21:52 02/17/25 21:52 Temperature Pulse Rate 97 H 102 H Respiratory Rate 20 28 H Blood Pressure 81/50 L Pulse Oximetry 94 94 02/17/25 21:55 02/17/25 21:55 02/17/25 22:00 Temperature Pulse Rate 102 H 99 H Respiratory Rate 24 22 Blood Pressure 90/50 L Pulse Oximetry 94 95 02/17/25 22:00 02/17/25 22:05 02/17/25 22:05 Temperature Pulse Rate 93 H Respiratory Rate 19 Blood Pressure 95/57 L 94/53 L Pulse Oximetry 94 02/17/25 22:06 02/17/25 22:10 02/17/25 22:10 Temperature 98.7 F 99.5 F Pulse Rate 92 H 100 H Respiratory Rate 21 21 Blood Pressure 94/53 L 97/53 L Pulse Oximetry 96 02/17/25 22:15 02/17/25 22:15 02/17/25 22:24 Temperature 99.0 F Pulse Rate 99 H 106 H Respiratory Rate 22 20 Blood Pressure 98/55 L 95/58 L Pulse Oximetry 95 <John Pimentel MD - Last Filed: 02/18/25 02:48> Orders Ordered: Discontinued Medications Diphenhydramine HCl (Diphenhydramine 50 Mg/Ml Vial) 25 mg IV NOW ONE Stop: 02/17/25 21:02 Last Admin: 02/17/25 21:10 Dose: 25 mg Documented By: MIRYAM Folic Acid (Folic Acid 1 Mg Tablet) 1 mg PO DAILY GOOD Ceftriaxone Sodium 2,000 mg/ (Sodium Chloride) 100 mls @ 200 mls/hr IV NOW ONE Stop: 02/17/25 20:22 Last Infusion: 02/17/25 21:36 Dose: Infused Documented By: Infusion: 02/17/25 21:27 Dose: 200 mls/hr Documented By: Infusion: 02/17/25 21:16 Dose: 0 mls/hr Documented By: Admin: 02/17/25 21:12 Dose: 200 mls/hr Documented By: MIRYAM Octreotide Acetate 500 mcg/ (Sodium Chloride) 101 mls @ 10.1 mls/hr IV CONT GOOD; Protocol Last Infusion: 02/17/25 22:25 Dose: 50 mcg/hr, 10.1 mls/hr Documented By: Admin: 02/17/25 21:34 Dose: 50 mcg/hr, 10.1 mls/hr Documented By: THUAN Lorazepam (Lorazepam 2 Mg/Ml Inj) 0 mg IV CIWAPRN PRN; Protocol PRN Reason: Alcohol Withdrawal Lorazepam (Lorazepam 2 Mg/Ml Inj) 1 mg IV NOW ONE Stop: 02/17/25 19:32 Last Admin: 02/17/25 19:37 Dose: 1 mg Documented By: MIRYAM Metoclopramide HCl (Metoclopramide 10 Mg/2 Ml Inj) 10 mg IV NOW ONE Stop: 02/17/25 21:03 Last Admin: 02/17/25 21:11 Dose: 10 mg Documented By: MIRYAM Multivitamins (Multivitamin 1 Tablet) 1 tab PO DAILY [facility] Octreotide Acetate (Octreotide 100 Mcg/Ml Vial) 50 mcg IV NOW ONE Stop: 02/17/25 20:23 Last Admin: 02/17/25 20:53 Dose: 50 mcg Documented By: MIRYAM Ondansetron HCl (Ondansetron 4 Mg/2 Ml Inj) 4 mg IV NOW PRN PRN Reason: Nausea And Vomiting Ondansetron HCl (Ondansetron 4 Mg Odt) 4 mg SL NOW PRN PRN Reason: Nausea And Vomiting Ondansetron HCl (Ondansetron 4 Mg/2 Ml Inj) 4 mg IV Q6HR PRN PRN Reason: Nausea And Vomiting Pantoprazole Sodium (Pantoprazole 40 Mg Vial) 80 mg IV NOW ONE Stop: 02/17/25 17:22 Last Admin: 02/17/25 17:57 Dose: 80 mg Documented By: MIRYAM Prochlorperazine (Prochlorperazine 10 Mg/2 Ml Vial) 10 mg IV NOW ONE Stop: 02/17/25 18:24 Last Admin: 02/17/25 18:29 Dose: 10 mg Documented By: MIRYAM Thiamine HCl (Thiamine 100 Mg Tablet) 100 mg PO DAILY [facility] Stop: 02/21/25 09:01 Vital Signs Vital signs: Vital Signs - 8 hr 02/17/25 18:45 02/17/25 18:45 02/17/25 18:50 Temperature Pulse Rate 107 H 112 H Respiratory Rate 21 24 Blood Pressure 108/64 Pulse Oximetry 96 02/17/25 18:55 02/17/25 19:00 02/17/25 19:00 Temperature Pulse Rate 109 H 105 H Respiratory Rate 27 H 20 Blood Pressure 98/56 L Pulse Oximetry 95 02/17/25 19:05 02/17/25 19:10 02/17/25 19:15 Temperature Pulse Rate 106 H 107 H Respiratory Rate 19 25 H Blood Pressure 100/60 Pulse Oximetry 96 94 02/17/25 19:15 02/17/25 19:20 02/17/25 19:25 Temperature Pulse Rate 104 H 106 H 103 H Respiratory Rate 22 33 H 20 Blood Pressure Pulse Oximetry 94 96 96 02/17/25 19:30 02/17/25 19:30 02/17/25 19:35 Temperature Pulse Rate 106 H 103 H Respiratory Rate 21 17 Blood Pressure 82/53 L Pulse Oximetry 97 02/17/25 19:35 02/17/25 19:46 02/17/25 19:48 Temperature Pulse Rate Respiratory Rate Blood Pressure 96/54 L 74/39 L 94/52 L Pulse Oximetry 02/17/25 19:48 02/17/25 19:50 02/17/25 19:50 Temperature Pulse Rate 104 H 101 H Respiratory Rate 21 20 Blood Pressure 98/54 L Pulse Oximetry 96 94 02/17/25 19:55 02/17/25 19:55 02/17/25 20:00 Temperature Pulse Rate 104 H 104 H Respiratory Rate 20 20 Blood Pressure 95/51 L Pulse Oximetry 94 95 02/17/25 20:00 02/17/25 20:05 02/17/25 20:05 Temperature Pulse Rate 99 H Respiratory Rate 17 Blood Pressure 88/54 L 91/55 L Pulse Oximetry 94 02/17/25 20:10 02/17/25 20:10 02/17/25 20:15 Temperature Pulse Rate 100 H 95 H Respiratory Rate 22 19 Blood Pressure 95/57 L Pulse Oximetry 95 93 02/17/25 20:15 02/17/25 20:20 02/17/25 20:20 Temperature Pulse Rate 94 H Respiratory Rate 19 Blood Pressure 96/57 L 95/54 L Pulse Oximetry 93 02/17/25 20:25 02/17/25 20:25 02/17/25 20:30 Temperature Pulse Rate 94 H 106 H Respiratory Rate 21 Blood Pressure 93/50 L Pulse Oximetry 92 97 02/17/25 20:31 02/17/25 20:31 02/17/25 20:35 Temperature Pulse Rate 112 H 108 H Respiratory Rate 21 Blood Pressure 121/58 L Pulse Oximetry 96 97 02/17/25 20:36 02/17/25 20:36 02/17/25 20:40 Temperature Pulse Rate 106 H 104 H Respiratory Rate 21 23 Blood Pressure 150/120 H Pulse Oximetry 98 96 02/17/25 20:44 02/17/25 20:44 02/17/25 20:45 Temperature 99.2 F Pulse Rate 103 H 103 H Respiratory Rate 21 19 Blood Pressure 95/52 L 94/51 L Pulse Oximetry 97 02/17/25 20:45 02/17/25 20:45 02/17/25 20:50 Temperature Pulse Rate 102 H Respiratory Rate 20 Blood Pressure 94/51 L 100/58 L Pulse Oximetry 98 02/17/25 20:50 02/17/25 20:55 02/17/25 20:55 Temperature Pulse Rate 103 H 101 H Respiratory Rate 19 19 Blood Pressure 88/49 L Pulse Oximetry 96 96 02/17/25 21:00 02/17/25 21:03 02/17/25 21:05 Temperature 98.4 F Pulse Rate 87 115 H 111 H Respiratory Rate 21 21 Blood Pressure 115/63 Pulse Oximetry 92 97 02/17/25 21:05 02/17/25 21:10 02/17/25 21:10 Temperature Pulse Rate 114 H Respiratory Rate 20 Blood Pressure 115/63 87/63 L Pulse Oximetry 93 02/17/25 21:15 02/17/25 21:15 02/17/25 21:20 Temperature Pulse Rate 112 H 113 H Respiratory Rate 18 19 Blood Pressure 111/57 L Pulse Oximetry 95 94 02/17/25 21:20 02/17/25 21:25 02/17/25 21:25 Temperature Pulse Rate 105 H Respiratory Rate 18 Blood Pressure 80/50 L 75/45 L Pulse Oximetry 94 02/17/25 21:30 02/17/25 21:30 02/17/25 21:35 Temperature Pulse Rate 100 H 104 H Respiratory Rate 11 L 11 L Blood Pressure 73/43 L Pulse Oximetry 94 94 02/17/25 21:35 02/17/25 21:40 02/17/25 21:40 Temperature Pulse Rate 100 H Respiratory Rate 9 L Blood Pressure 75/43 L 73/44 L Pulse Oximetry 94 02/17/25 21:45 02/17/25 21:45 02/17/25 21:50 Temperature Pulse Rate 104 H Respiratory Rate 29 H Blood Pressure 79/49 L 68/38 L Pulse Oximetry 94 02/17/25 21:50 02/17/25 21:52 02/17/25 21:52 Temperature Pulse Rate 97 H 102 H Respiratory Rate 20 28 H Blood Pressure 81/50 L Pulse Oximetry 94 94 02/17/25 21:55 02/17/25 21:55 02/17/25 22:00 Temperature Pulse Rate 102 H 99 H Respiratory Rate 24 22 Blood Pressure 90/50 L Pulse Oximetry 94 95 02/17/25 22:00 02/17/25 22:05 02/17/25 22:05 Temperature Pulse Rate 93 H Respiratory Rate 19 Blood Pressure 95/57 L 94/53 L Pulse Oximetry 94 02/17/25 22:06 02/17/25 22:10 02/17/25 22:10 Temperature 98.7 F 99.5 F Pulse Rate 92 H 100 H Respiratory Rate 21 21 Blood Pressure 94/53 L 97/53 L Pulse Oximetry 96 02/17/25 22:15 02/17/25 22:15 02/17/25 22:24 Temperature 99.0 F Pulse Rate 99 H 106 H Respiratory Rate 22 20 Blood Pressure 98/55 L 95/58 L Pulse Oximetry 95 MDM - GI Bleed <Miko Andrew MD - Last Filed: 02/23/25 08:49> Lab Data 02/17/25 17:12 02/17/25 17:12 Labs: Lab Results 02/17/25 02/17/25 Range/Units 17:12 17:38 WBC 11.8 H (4.5-11.0) X10^3/uL RBC 3.27 L (4.5-5.9) X10^6/uL Hgb 11.0 L (13.5-17.5) g/dL Hct 32.5 L (41-53) % MCV 99.2 (80-100) fL MCH 33.6 (26-34) PG MCHC 33.8 (30-36) % RDW 14.8 (11.6-14.8) % Plt Count 115 L (150-400) X10^3/uL Neut % (Auto) 82.6 H (50-75) % Lymph % (Auto) 9.3 L (25-40) % [place] % (Auto) 7.5 (3-14) % Eos % (Auto) 0.0 L (2-4) % Baso % (Auto) 0.6 (0-2) % Neut # (Auto) 9700 H (0453-3059) /uL Lymph # (Auto) 1100 (1245-7494) /uL [place] # (Auto) 900 (0-900) /uL Eos # (Auto) 0 (0-450) /uL Baso # (Auto) 100 (0-100) /uL PT 17.6 H (9.4-12.5) SECONDS INR 1.6 H (0.9-1.3) APTT 34 (25.1-36.5) SECONDS Sodium 139 (137-145) mmol/L Potassium 4.3 (3.4-5.1) mmol/L Chloride 104 (98-107) mmol/L Carbon Dioxide 26 (22-32) mmol/L BUN 44 H (9-20) mg/dL Creatinine 0.78 (0.66-1.25) mg/dL Estimated GFR > 60 (>60) mL/min BUN/Creatinine Ratio 56.4 H (6-22) Glucose 171 H (70-99) mg/dL Calcium 8.5 (8.4-10.2) mg/dL Total Bilirubin 6.3 H (0.2-1.3) mg/dL AST 65 H (17-59) IU/L ALT 36 (<50) IU/L Alkaline Phosphatase 93 (38-126) U/L Total Protein 5.5 L (6.3-8.2) g/dL Albumin 3.2 L (3.5-5.0) g/dL Globulin 2.3 (1.7-4.1) g/dL Albumin/Globulin Ratio 1.4 (1.0-2.8) Ethyl Alcohol < 10 ( - 10) mg/dL Blood Type O Positive Antibody Screen Negative Crossmatch See Detail Point of Care Testing Stool Occult Blood Positive Imaging Data CT scan - abdomen/pelvis: Radiologist's Impression: [address] [address] [address] Scan Report Signed Patient: Lopez Guerrero MR#: [id number] : 1955 Acct:[id number] Age/Sex: 69 / M Date of Service: 02/17/25 Loc: ED Accession Number: [id number] Procedure: CT abdomen pelvis w con Ordering Provider: Miko Andrew MD PROCEDURE: CT ABDOMEN PELVIS W CON INDICATIONS: IV contrast only/GI bleed TECHNIQUE: After the administration of intravenous contrast, axial sections acquired from the lung bases to the pubic symphysis. Coronal and sagittal reformats were performed. For radiation dose reduction, the following was used: automated exposure control, adjustment of mA and/or kV according to patient size. COMPARISON: [facility], CT, CT ABDOMEN PELVIS W CON, 11/28/2023, 12:02. FINDINGS: Image quality: Diagnostic. Lower Chest: Right basilar linear scarring/atelectasis is seen. Heart size is mildly enlarged, no pericardial effusion. Moderate size hiatal hernia. Distal esophageal wall thickening is seen. ABDOMEN: Liver: No solid mass. Lobulated liver contour is seen. Gallbladder: No radiopaque gallstones or wall thickening. Biliary ducts: No biliary dilation. Pancreas: No ductal dilation. Spleen: Mild splenomegaly, no discrete splenic lesion. Adrenal Glands: No adrenal nodules. Kidneys and Ureters: No hydronephrosis. No solid mass. No complex renal cystic lesion which requires follow up. Stomach and Bowel: There is fluid distension of stomach lumen with suggestion of diffuse gastric wall thickening. Mild small bowel wall thickening throughout abdomen is seen. Mild diffuse wall thickening throughout the colon is also noted. There is mild pericolonic fat stranding. No abscess collection. Appendix is visualized and is within normal limits. Colonic diverticulosis is seen without focal acute diverticulitis. Peritoneum: Small amount of ascites fluid is seen. Varicosities are noted adjacent to the splenic hilum and in paraesophageal soft tissue. No free air. Ventral Wall: No significant ventral hernia. Abdominal Nodes: No retroperitoneal or mesenteric adenopathy by size criteria. Vessels: Aorta and inferior vena cava are normal in size. [id number] atherosclerotic disease in abdominal aorta and bilateral iliac arteries are seen. PELVIS: Pelvic Organs: Unremarkable. Bladder: No bladder wall thickening, accounting for underdistention. Pelvic Nodes: No enlarged lymph nodes. Miscellaneous: No inguinal hernias are seen. Bones: No aggressive osseous abnormality. IMPRESSION: 1. Finding is suggestive of cirrhosis and portal venous hypertension. Small amount of ascites fluid. No gross free air. 2. Prominent varicosities in periesophageal soft tissue and near splenic hilum. 3. Marked gastric wall thickening as well as small bowel wall thickening particularly involving duodenum and proximal jejunum concerning for gastroenteritis. Suggestion of mild distal esophagitis. Small hiatal hernia. 4. Questionable colonic wall thickening versus under distension. Low-grade colitis cannot be excluded. No abscess collection. 5. Normal appendix. Colonic diverticulosis without CT evidence of focal acute diverticulitis. No bowel obstruction. 6. Splenomegaly unchanged from prior study. Dictated by: Maxi Potter M.D. on 02/17/2025 at 18:06 Approved by: Maxi Potter M.D. on 02/17/2025 at 18:11 [facility] Narrative Medical decision making narrative: Patient brought in by ambulance from home. at bedside. Patient has had dark emesis and dark black stools since yesterday. Has felt lightheaded and dizzy. Blood pressure noted. Heart rate noted. Patient has known alcohol related liver disease. Patient sees liver specialist in [place]. However has not seen the specialist since June of last year. Was supposed to get a CT scan since then but has not. Did not go to the appointment this past December. Patient did have EGD and colonoscopy 1 year ago at [facility] and describes him having esophageal varices. He has never had bleeding before. Blood pressure noted on arrival. As well as heart rate. After history and exam, CBC CMP PT INR PTT type and screen octreotide Protonix CT abdomen pelvis normal saline, CIWA protocol [facility] Medical records reviewed: No recent visit for this complaint Differential considered: Includes but not limited to esophageal variceal bleed upper GI bleed Lab Test results independently reviewed as above. Pertinent findings: INR 1.6 PT 17.6 sodium 139 potassium 4.3 GFR greater than 60 AST 65 ALT 36, WBC 11.8 hemoglobin 11.0 hematocrit 32.5 platelets 115 Independently reviewed EKG sinus tachycardia rate 115 Imaging studies independently reviewed: CT abdomen pelvis esophageal varicosities. Gastric wall thickening, esophagitis, cirrhosis portal venous hypertension small ascites prominent varicosities periesophageal soft tissue and near splenic hilum Consultations: Re-evaluations: 6:50 p.m.. Updated patient and and they do understand will need to be transferred. Concern for esophageal variceal bleed. We do not have resources here to treat for his needs. Discussion: Diagnosis: 7:[address] Andrew: Sign out to Dr. Pimentel, awaiting call back from [facility]. There is no beds at [facility] or [facility] [facility] patient is stable at this time. <John Pimentel MD - Last Filed: 02/18/25 02:48> Lab Data Labs: Lab Results 02/17/25 02/17/25 Range/Units 17:12 17:38 WBC 11.8 H (4.5-11.0) X10^3/uL RBC 3.27 L (4.5-5.9) X10^6/uL Hgb 11.0 L (13.5-17.5) g/dL Hct 32.5 L (41-53) % MCV 99.2 (80-100) fL MCH 33.6 (26-34) PG MCHC 33.8 (30-36) % RDW 14.8 (11.6-14.8) % Plt Count 115 L (150-400) X10^3/uL Neut % (Auto) 82.6 H (50-75) % Lymph % (Auto) 9.3 L (25-40) % [place] % (Auto) 7.5 (3-14) % Eos % (Auto) 0.0 L (2-4) % Baso % (Auto) 0.6 (0-2) % Neut # (Auto) 9700 H (3336-6379) /uL Lymph # (Auto) 1100 (8032-4183) /uL [place] # (Auto) 900 (0-900) /uL Eos # (Auto) 0 (0-450) /uL Baso # (Auto) 100 (0-100) /uL PT 17.6 H (9.4-12.5) SECONDS INR 1.6 H (0.9-1.3) APTT 34 (25.1-36.5) SECONDS Sodium 139 (137-145) mmol/L Potassium 4.3 (3.4-5.1) mmol/L Chloride 104 (98-107) mmol/L Carbon Dioxide 26 (22-32) mmol/L BUN 44 H (9-20) mg/dL Creatinine 0.78 (0.66-1.25) mg/dL Estimated GFR > 60 (>60) mL/min BUN/Creatinine Ratio 56.4 H (6-22) Glucose 171 H (70-99) mg/dL Calcium 8.5 (8.4-10.2) mg/dL Total Bilirubin 6.3 H (0.2-1.3) mg/dL AST 65 H (17-59) IU/L ALT 36 (<50) IU/L Alkaline Phosphatase 93 (38-126) U/L Total Protein 5.5 L (6.3-8.2) g/dL Albumin 3.2 L (3.5-5.0) g/dL Globulin 2.3 (1.7-4.1) g/dL Albumin/Globulin Ratio 1.4 (1.0-2.8) Ethyl Alcohol < 10 ( - 10) mg/dL Blood Type O Positive Antibody Screen Negative Crossmatch See Detail Point of Care Testing Stool Occult Blood Positive [facility] Narrative Medical decision making narrative: Patient brought in by ambulance from home. at bedside. Patient has had dark emesis and dark black stools since yesterday. Has felt lightheaded and dizzy. Blood pressure noted. Heart rate noted. Patient has known alcohol related liver disease. Patient sees liver specialist in [place]. However has not seen the specialist since June of last year. Was supposed to get a CT scan since then but has not. Did not go to the appointment this past December. Patient did have EGD and colonoscopy 1 year ago at [facility] and describes him having esophageal varices. He has never had bleeding before. Blood pressure noted on arrival. As well as heart rate. After history and exam, CBC CMP PT INR PTT type and screen octreotide Protonix CT abdomen pelvis normal saline, CIWA protocol [facility] Medical records reviewed: No recent visit for this complaint Differential considered: Includes but not limited to esophageal variceal bleed upper GI bleed Lab Test results independently reviewed as above. Pertinent findings: INR 1.6 PT 17.6 sodium 139 potassium 4.3 GFR greater than 60 AST 65 ALT 36, WBC 11.8 hemoglobin 11.0 hematocrit 32.5 platelets 115 Independently reviewed EKG sinus tachycardia rate 115 Imaging studies independently reviewed: CT abdomen pelvis esophageal varicosities. Gastric wall thickening, esophagitis, cirrhosis portal venous hypertension small ascites prominent varicosities periesophageal soft tissue and near splenic hilum Consultations: Re-evaluations: 6:50 p.m.. Updated patient and and they do understand will need to be transferred. Concern for esophageal variceal bleed. We do not have resources here to treat for his needs. Discussion: Diagnosis: 7:[address] Andrew: Sign out to Dr. Pimentel, awaiting call back from [facility]. There is no beds at [facility] or [facility] patient is stable at this time. 02/17/[id number]. Signout from Dr Andrew. 69-year-old male with history of alcoholic cirrhosis, esophageal varices, has had 24 hours duration of intermittent vomiting hematemesis, history of prior EGD in [place] last year, followed by GI Gabri[facility]. On initial presentation with low blood pressure and recent black stools, given IV fluid bolus anymore saline 500 cc, blood pressure improved, given Protonix octreotide Zofran. Hemoglobin normal range. INR normal. CT abdomen and pelvis shows paraesophageal varices and cirrhosis changes, no mentioned ascites or acute inflammatory changes. No beds [place] [facility] where he has GI specially coverage. Last drink yesterday, currently CIWA negative it is not seem to be withdrawing at this time. Keep NPO. Call out to [facility], awaiting call back. Possible transfer. Assumed care. 1919, now SBP 82, heart rate 100, will start 1u PRBC, had single large melanotic stool in ED, no hematemesis in ED so far. 1929, case discussed with [facility] intake, await call back from GI/hospitalist for possible transfer. Could not find orders for octreotide, we will bolus with IV octreotide 50 mcg, then 50 micrograms/hour infusion. CT report abdomen and pelvis. Impressions: ?Findings suggestive of cirrhosis and portal venous hypertension. Small amount of ascites fluid. No gross free air. Prominent varicosities periesophageal soft tissue and nearest splenic hilum. Marked gastric wall thickening as well as small bowel wall thickening particularly involving duodenum and proximal jejunum concerning for gastroenteritis. Suggestive of mild distal esophagitis. Small hiatal hernia. Questionable colonic wall thickening versus underdistention. Low-grade colitis can not be excluded. No abscess collection. Normal appendix. Colonic diverticulosis without CT evidence of focal acute diverticulitis. No bowel obstruction. Splenomegaly unchanged from prior study.? see radiology report. 2029, case discussed with [facility] Dr. Xavier who agrees with the above treatments, INR 1.6 would hold FFP for now, would add IV ceftriaxone, ordered. 2039, call back from [facility], accepted for transfer, bed available, ALS transport to be arranged. Critical Care Time <John Pimentel MD - Last Filed: 02/18/25 02:48> Critical Care Time Critical Care Time: Yes Total Critical Care Time: 35 Attestation: The high probability of a clinically significant, sudden or life threatening deterioration of the [gastrointestinal, hepatic, hematologic] system(s) required my full and direct attention, intervention and personal management. The aggregate critical care time was [35] minutes. This time is in addition to time spent performing reported procedures but includes the following: [x] Data Review and interpretation [x] Patient assessment and monitoring of vital signs [x] Documentation [x] Medication orders and management Discharge Plan Departure Patient Disposition: [facility] Clinical Impression: Gastrointestinal bleeding, upper, Esophageal varices, Cirrhosis of liver Prescriptions: No Action hydrochlorothiazide 25 mg tablet 25 mg PO DAILY losartan 100 mg tablet 100 mg PO DAILY omeprazole 40 mg capsule,delayed release(DR/EC) 40 mg PO QAM acetaminophen [Tylenol Extra Strength] 500 mg Tablet 1,000 mg PO Q6H PRN (Reason: Pain (Scale Score 4-6)) ferrous sulfate [FeroSul] 325 mg (65 mg iron) tablet 325 mg PO QAM ibuprofen 600 mg Tablet 600 mg PO Q6H PRN (Reason: Pain (Scale Score 4-6)) oxycodone 5 mg Tablet 5 mg PO Q4-6H PRN (Reason: Mild or moderate pain) Qty: 30 0RF Referrals: Lopez Duarte MD [Primary Care Provider] -
[2025-02-17 17:37] LABS: Alanine Aminotransferase 36 IU/L (<50); Albumin 3.2 g/dL (3.5-5.0); Albumin Globulin Ratio 1.4 (1.0-2.8); Alkaline Phosphatase 93 U/L (38-126); Aspartate Aminotransferase 65 IU/L (17-59); BUN Creatinine Ratio 56.4 (6-22); Bilirubin Total 6.3 mg/dL (0.2-1.3); Blood Urea Nitrogen 44 mg/dL (9-20); Calcium 8.5 mg/dL (8.4-10.2); Carbon Dioxide 26 mmol/L (22-32); Chloride 104 mmol/L (98-107); Estimated Glomerular Filt Rate > 60 mL/min (>60); Globulin 2.3 g/dL (1.7-4.1); Glucose 171 mg/dL (70-99); HEMOLYSIS < 15 (0-50); Potassium 4.3 mmol/L (3.4-5.1); Sodium 139 mmol/L (137-145); Total Protein 5.5 g/dL (6.3-8.2)
[2025-02-17 17:46] LABS: Add Manual Diff / Slide Review NO; Basophils Absolute Auto 100 /uL (0-100); Basophils Percent Auto 0.6 % (0-2); Eosinophils Absolute Auto 0 /uL (0-450); Hematocrit 32.5 % (41-53); Lymphocytes Absolute Auto 1100 /uL (1100-4500); Lymphocytes Percent Auto 9.3 % (25-40); Mean Corpuscular HGB Conc 33.8 % (30-36); Mean Corpuscular Hemoglobin 33.6 PG (26-34); Mean Corpuscular Volume 99.2 fL (80-100); Monocytes Absolute Auto 900 /uL (0-900); Monocytes Percent Auto 7.5 % (3-14); Neutrophils Absolute Auto 9700 /uL (1500-7000); Neutrophils Percent Auto 82.6 % (50-75); Platelet Count 115 X10^3/uL (150-400); Red Blood Cell Count 3.27 X10^6/uL (4.5-5.9); Red Cell Distribution Width 14.8 % (11.6-14.8); White Blood Cell Count 11.8 X10^3/uL (4.5-11.0)
[2025-02-17] MEDS: PANTOPRAZOLE 40 MG VIAL 80 MG IV (17:57)
[2025-02-17 17:59] LABS: Ethanol (ETOH) < 10 mg/dL
[2025-02-17] MEDS: PROCHLORPERAZINE 10 MG/2 ML VIAL IV (18:29)
--- NOTE | 2025-02-17 19:01 | PC.NURSE ---
Patient states he needs to have a bowel movement, this RN and John MALONE helped the patient onto the bedpan, patient had small melena BM. Stool guaiac at bedside is positive for blood, Dr Andrew and Dr Pimentel aware.
[2025-02-17] MEDS: LORazepam 2 MG/ML INJ 1 MG IV (19:37)
--- NOTE | 2025-02-17 19:45 | PC.NURSE ---
This RN wasted 1mg of ativan with charge nurse Oralia
[2025-02-17] MEDS: OCTREOTIDE 100 MCG/ML VIAL 50 MCG IV (20:53)
[2025-02-17] MEDS: diphenhydrAMINE 50 MG/ML VIAL 25 MG IV (21:10)
[2025-02-17] MEDS: METOCLOPRAMIDE 10 MG/2 ML INJ IV (21:11)
[2025-02-17] MEDS: cefTRIAXone 2,000 MG in SODIUM CHLORIDE 0.9% 100 ML 200 MG IV (21:12)
[2025-02-17] MEDS: OCTREOTIDE 500 MCG in SODIUM CHLORIDE 0.9% 100 ML 10.1 MCG IV (21:34)
--- NOTE | 2025-02-17 21:42 | PC.NURSE ---
1945- Patient becomes hypotensive 78 systolic, this RN and charge nurse Oralia RN are in the room, adjust cuff and ask patient to roll on their back, new BP is 90's systolic. Dr. Pimentel is aware and orders blood transfusion this RN obtains blood consent from Sharlene and patient agrees.
--- NOTE | 2025-02-17 22:22 | PC.NURSE ---
Pt being transferred, 2nd unit of blood verified and started, to be completed during transport. Octrieotide running at this time and will continue during transport.
== END 2025-02-17 22:30 | disposition short-term general hospital (02) ==
PROVIDERS: Emergency Medicine; Emergency Provider Emergency Medicine; PCP Family Medicine
DX: I85.01 Esophageal varices with bleeding (principal); K70.30 Alcoholic cirrhosis of liver without ascites; R00.0 Tachycardia, unspecified
CPT/HCPCS: 36415; 36430; 74177; 80053; 80320; 82272; 85025; 85610; 85730; 86850; 86900; 86901; 93005; 96365; 96367; 96375; 99285; 99291; P9016; J0696; J0780; J1200; J2060; J2354; J2470; J2765; Q9967

== ENCOUNTER → 2025-02-26 13:06 | Outpatient (CLI) | payer OTHER, SELFPAY ==
[2025-02-26 14:27] LABS: Add Manual Diff / Slide Review NO; Basophils Absolute Auto 200 /uL (0-100); Basophils Percent Auto 2.5 % (0-2); Eosinophils Absolute Auto 100 /uL (0-450); Eosinophils Percent Auto 1.4 % (2-4); Hematocrit 30.7 % (41-53); Hemoglobin 10.2 g/dL (13.5-17.5); Lymphocytes Absolute Auto 800 /uL (1100-4500); Lymphocytes Percent Auto 12.4 % (25-40); Mean Corpuscular HGB Conc 33.3 % (30-36); Mean Corpuscular Hemoglobin 33.5 PG (26-34); Mean Corpuscular Volume 100.5 fL (80-100); Monocytes Absolute Auto 1100 /uL (0-900); Monocytes Percent Auto 17.9 % (3-14); Neutrophils Absolute Auto 4000 /uL (1500-7000); Neutrophils Percent Auto 65.8 % (50-75); Platelet Count 179 X10^3/uL (150-400); Red Blood Cell Count 3.05 X10^6/uL (4.5-5.9); Red Cell Distribution Width 16.9 % (11.6-14.8); White Blood Cell Count 6.2 X10^3/uL (4.5-11.0)
[2025-02-26 15:31] LABS: Alanine Aminotransferase 41 IU/L (<50); Albumin 3.4 g/dL (3.5-5.0); Albumin Globulin Ratio 1.3 (1.0-2.8); Alkaline Phosphatase 215 U/L (38-126); Aspartate Aminotransferase 78 IU/L (17-59); BUN Creatinine Ratio 19.2 (6-22); Bilirubin Total 4.7 mg/dL (0.2-1.3); Blood Urea Nitrogen 15 mg/dL (9-20); Calcium 8.4 mg/dL (8.4-10.2); Carbon Dioxide 21 mmol/L (22-32); Chloride 105 mmol/L (98-107); Estimated Glomerular Filt Rate > 60 mL/min (>60); Globulin 2.7 g/dL (1.7-4.1); Glucose 130 mg/dL (70-99); Sodium 135 mmol/L (137-145); Total Protein 6.1 g/dL (6.3-8.2)
[2025-02-26 15:41] LABS: HEMOLYSIS 105 (0-50)
== END ==
PROVIDERS: PCP Family Medicine; Referring Provider Family Medicine; Visit Provider Family Medicine
DX: K70.31 Alcoholic cirrhosis of liver with ascites (principal); I85.00 Esophageal varices without bleeding; D61.818 Other pancytopenia
CPT/HCPCS: 36415; 80053; 85025

== ENCOUNTER → 2025-03-05 15:14 | Outpatient (CLI) | payer OTHER, SELFPAY ==
--- NOTE | 2025-03-05 15:21 | DI.RAD.S_ITS ---
PROCEDURE: XR CHEST 2V INDICATIONS: SHORTNESS OF BREATH TECHNIQUE: 2 views of the chest were acquired. COMPARISON: [facility], CR, XR CHEST 2V, 09/04/2018, 10:43. FINDINGS: Surgical changes and devices: None. Lungs and pleura: Lungs are clear. No pleural effusions or pneumothorax. Mediastinum: Mediastinal contours are normal. Heart size is normal. Bones and chest wall: No suspicious bony abnormalities. Soft tissues appear unremarkable. IMPRESSION: No acute cardiopulmonary abnormality is seen. Dictated by: Gunner King M.D. on 03/06/2025 at 16:48 Approved by: Gunner King M.D. on 03/06/2025 at 16:50
== END ==
PROVIDERS: PCP Family Medicine; Referring Provider Family Medicine; Visit Provider Family Medicine
DX: Z87.01 Personal history of pneumonia (recurrent) (principal); R06.02 Shortness of breath; R05.1 Acute cough
CPT/HCPCS: 0241U; 71046

== ENCOUNTER → 2025-03-05 15:38 | Outpatient (ROUT) | payer OTHER, SELFPAY ==
[2025-03-05 16:30] LABS: Influenza A - CEPHEID Flu A NEGATIVE (NEGATIVE); Influenza B - CEPHEID Flu B NEGATIVE (NEGATIVE); Respiratory Syncytial Virus Negative (Negative)
[2025-03-05 17:11] LABS: COVID-19 CEPHEID 4-PLEX PCR Negative (Negative)
== END ==
LOC: LAB 15:42
PROVIDERS: PCP Family Medicine; Visit Provider Family Medicine
DX: R06.02 Shortness of breath (principal); R05.1 Acute cough
CPT/HCPCS: 0241U